=== PATIENT | female | born 1950 | race Caucasian/White ===

== ENCOUNTER 2016-10-28 16:22 | Emergency (ER) | payer MEDICARE, OTHER ==
[~2016-10-28] VITALS: Ht 170.2 cm; Wt 77.1 kg
--- NOTE | ~2016-10-28 | CR126 ---
[facility] A Service of [facility] & [facility] RADIOLOGY TEXT RESULTS PATIENT: RIVERA CABALLERO LOCATION: [facility] : 51 UNIT #: [id number] AGE: [address]: Sunday Garcia MD SEX: F ORDER DR: [id number] [facility] [address] [place], [place] [address] [id number] E MR#: [id number] Acc #: [id number] NAME: RIVERA CABALLERO : 1950 SEX: F STUDY DATE/TIME: 10/28/2016 17:50 UNIT: [facility] ROOM: STUDY DESCRIPTION: CR Foot Complete Min 3 View Lt Attending Physician: Sunday Garcia M.D. Ordering Physician: [facility] MEDICAL IMAGING REPORT This report is preliminary unless electronic signature is present EXAM Left foot 10/28/2016 INDICATIONS Fell down the stairs today. Bilateral foot and ankle pain. Swelling and redness in both feet extending into the ankles and especially the toes. TECHNIQUE 3 views of the left foot. COMPARISON STUDIES No comparisons. FINDINGS Examination is negative. No acute fracture or retained opaque foreign body. Joint spaces preserved. IMPRESSION 1. Negative. Dictated by... Jemal De La Cruz M.D. THIS IS AN ELECTRONICALLY VERIFIED REPORT Jemal De La Cruz M.D. at 10/31/2016 7:26 AM Shivam TD: 10/29/2016 12:59 JOB #: [id number] MEDICAL IMAGING REPORT Page 1 of 1 COPY
--- NOTE | ~2016-10-28 | CR127 ---
[facility] A Service of [facility] RADIOLOGY TEXT RESULTS PATIENT: RIVERA CABALLERO LOCATION: [facility] : 51 UNIT #: [id number] AGE: [address]: Sunday Garcia MD SEX: F ORDER DR: [id number] [place] [id number] [facility]. [place], [place] [address] [id number] E MR#: [id number] Acc #: [id number] NAME: RIVERA CABALLERO : 1950 SEX: F STUDY DATE/TIME: 10/28/2016 17:50 UNIT: [facility] ROOM: STUDY DESCRIPTION: CR Foot Complete Min 3 View Rt Attending Physician: Sunday Garcia M.D. Ordering Physician: Zacarias Avila M.D. Primary Care Physician: No Primary Care Physician MEDICAL IMAGING REPORT This report is preliminary unless electronic signature is present EXAM Right foot, 10/28/2016. INDICATIONS Foot and ankle pain and swelling and redness of the feet extending into the ankles and toes after falling down the stairs today. TECHNIQUE Three views right foot. COMPARISON No comparisons. FINDINGS The examination is abnormal. There is a hairline fracture through the base of the fifth metatarsal along the lateral aspect. There is equivocal breech of the medial cortex. No definite interarticular extension. Degenerative change of the first MTP joint. No additional fracture. IMPRESSION Hairline nondisplaced fracture through the base of the fifth metatarsal primarily transversely oriented. Equivocal breech of the medial cortex as well as the lateral cortex but no interarticular extension. Dictated by... Jemal De La Cruz M.D. THIS IS AN ELECTRONICALLY VERIFIED REPORT Jemal De La Cruz M.D. at 10/31/2016 7:25 AM ANDREA/rikki TD: 10/29/2016 13:08 JOB #: [id number] [facility] A Service [facility] RADIOLOGY TEXT RESULTS PATIENT: RIVERA CABALLERO LOCATION: [facility] #: [id number] : 52 UNIT #: [id number] AGE: [address]: Sunday Garcia MD SEX: F ORDER DR: MEDICAL IMAGING REPORT Page 1 of 1 COPY
--- NOTE | ~2016-10-28 | CR21 ---
[facility] A Service of [facility] RADIOLOGY TEXT RESULTS PATIENT: RIVERA CABALLERO LOCATION: [facility] : 51 UNIT #: [id number] AGE: [address]: Sunday Garcia MD SEX: F ORDER DR: [id number] [facility] [address] [facility]. [place], [place] [address] [id number] E MR#: [id number] Acc #: [id number] NAME: RIVERA CABALLERO : 1950 SEX: F STUDY DATE/TIME: 10/28/2016 17:50 UNIT: [facility] ROOM: STUDY DESCRIPTION: CR Ankle Min 3 Views Rt Attending Physician: Sunday Garcia M.D. Ordering Physician: Zacarias Avila M.D. Primary Care Physician: No Primary Care Physician MEDICAL IMAGING REPORT This report is preliminary unless electronic signature is present EXAM Right ankle, 10/28/2016. INDICATIONS 66-year-old female fell down stairs today. Bilateral foot and ankle pain and swelling and redness of both feet extending into the ankles and toes. TECHNIQUE 3 views right ankle. COMPARISON No comparisons. FINDINGS Ankle mortise intact. No distinct ankle fracture. There is however a fracture through the base of the fifth metatarsal better demonstrated on the right foot series. Please see that report for further details. IMPRESSION 1. There is a fracture of the base of the fifth metatarsal. Please see the foot series for further details. 2. No evidence of ankle fracture. Dictated by... Jemal De La Cruz M.D. THIS IS AN ELECTRONICALLY VERIFIED REPORT Jemal De La Cruz M.D. at 10/31/2016 7:25 AM ANDREA/rikki TD: 10/29/2016 13:05 JOB #: [id number] [facility] A Service of [facility] RADIOLOGY TEXT RESULTS PATIENT: RIVERA CABALLERO LOCATION: [facility] : 51 UNIT #: [id number] AGE: [address]: Sunday Garcia MD SEX: F ORDER DR: MEDICAL IMAGING REPORT Page 1 of 1 COPY
--- NOTE | ~2016-10-28 | CR20 ---
[facility] A Service of [facility] & [facility] RADIOLOGY TEXT RESULTS PATIENT: RIVERA CABALLERO LOCATION: [facility] : 51 UNIT #: [id number] AGE: [address]: Sunday Garcia MD SEX: F ORDER DR: [id number] [facility] [address] [facility]. [place], [place] [address] [id number] E MR#: [id number] Acc #: [id number] NAME: RIVERA CABALLERO : 1950 SEX: F STUDY DATE/TIME: 10/28/2016 17:50 UNIT: [facility] ROOM: STUDY DESCRIPTION: CR Ankle Min 3 Views Lt Attending Physician: Sunday Garcia M.D. Ordering Physician: Ed Dakotah Avila M.D. Primary Care Physician: No Primary Care Physician MEDICAL IMAGING REPORT This report is preliminary unless electronic signature is present EXAM Left ankle 10/28/2016. INDICATIONS Pain and swelling bilaterally, redness in the feet and ankles, fell down the stairs today. TECHNIQUE 3 views of the left ankle. COMPARISON No comparisons. FINDINGS Ankle mortise intact. No acute fracture. Soft tissues unremarkable. Lateral view degraded by nonstandard positioning but otherwise negative. IMPRESSION Negative. Dictated by... Jemal De La Cruz M.D. THIS IS AN ELECTRONICALLY VERIFIED REPORT Jemal De La Cruz M.D. at 10/31/2016 7:25 AM Ryan TD: 10/29/2016 13:02 JOB #: [id number] MEDICAL IMAGING REPORT Page 1 of 1 COPY
== END 2016-10-28 21:30 | disposition home or self-care (01) ==
LOC: CED 16:22
DX: S92.354A Nondisplaced fracture of fifth metatarsal bone, right foot, initial encounter for closed fracture (principal); I10 Essential (primary) hypertension; I25.2 Old myocardial infarction; J44.9 Chronic obstructive pulmonary disease, unspecified; F17.200 Nicotine dependence, unspecified, uncomplicated; Z79.82 Long term (current) use of aspirin; W01.0XXA Fall on same level from slipping, tripping and stumbling without subsequent striking against object, initial encounter; Y92.009 Unspecified place in unspecified non-institutional (private) residence as the place of occurrence of the external cause
CPT/HCPCS: 29540; 73610; 73630; 99283